=== PATIENT | female | born 1975 | race Caucasian/White ===

== ENCOUNTER → 2016-12-14 12:46 | Outpatient (CLI) | payer MEDICAID ==
[~2016-12-14 12:46] MED LIST: AMBIEN5 MG PO; HYDROCODONE-APA1 TAB PO; MULTIPLE VITAMI1 TA1 PO; NEURONTIN600 MG PO; SYNTHROID175 MCG PO
== END | disposition home or self-care (01) ==
LOC: D.MRI 12:46
DX: M25.562 Pain in left knee (principal)

== ENCOUNTER → 2017-03-20 13:31 | Outpatient (CLI) | payer MEDICAID | END | disposition home or self-care (01) | LOC: D.MRI 13:31 | DX: M25.562 Pain in left knee (principal) ==

== ENCOUNTER 2017-04-18 06:01 | Day surgery (SDC) | payer MEDICAID ==
[2017-04-17 10:04] LABS: HEMATOCRIT 32.8 % (36.0-48.0); HEMOGLOBIN 10.3 g/dL (12-16); MCH 27.7 pg (26.0-34.0); MCHC 31.4 g/dL (31.0-37.0); MCV 88.2 fL (80.0-100.0); MEAN PLATELET VOLUME 9.5 fL (7.4-10.4); RBC 3.72 10x6/uL (4.00-5.40); RDW 13.4 % (11.5-14.5); WBC 5.1 10x3/uL (4.8-10.8)
[~2017-04-18] VITALS: Ht 167.6 cm; Wt 79.4 kg
[~2017-04-18 06:01] MED LIST changes: +ESTRACE 0.5 MG0.5 MG PO; +LEVOTHYROXINE200 MCG PO; +VOLTAREN100 MG PO; +XANAX1 MG PO; +ZOLOFT50 MG PO
[2017-04-18 06:23] VITALS: BP 113/73; Ht 167.6 cm; Wt 79.4 kg
[2017-04-18] MEDS ORDERED: PERCOCET 7.5/321 TAB PO (08:10)
--- NOTE | 2017-04-19 16:14 | OP ---
PATIENT NAME: SALVADOR SIN MEDICAL RECORD: [id number] :71 LOCATION:D.OPS ADMISSION DATE: SURGEON: MERYL PEREZ DO DATE OF OPERATION: 04/18/2017 PROCEDURE PERFORMED: Left knee arthroscopy, partial medial and partial lateral meniscectomies as well as medial femoral condyle chondroplasty. PREOPERATIVE DIAGNOSIS: Left knee medial meniscal tear. POSTOPERATIVE DIAGNOSES: Left knee medial meniscal tear, lateral meniscal tear, and grade III chondromalacia of the medial femoral condyle. SURGEON: Meryl Perez DO INDICATIONS: Ms. Sin is a 42-year-old female who has had left knee pain for some time. She had an MRI, which showed meniscal tear and she decided to have it fixed. She was consented in the office for the procedure. DESCRIPTION OF PROCEDURE: The patient was taken to the operative suite, given a gram of Ancef preoperatively and had no reaction. She has a PENICILLIN ALLERGY. A timeout was performed and all parties were in agreement. The left knee was identified as the correct knee and correct patient. The patient was placed in supine position. The left leg was prepped and draped and after the patient was given general anesthetic, the knee was then flexed and the portal sites were injected with 3.5mL of 0.5% Marcaine with epinephrine on both the medial and lateral portal sites on the anterior knee. The lateral portal was then established, it was a horizontal portal and then previously that was used. An incision was then made and the trocar was inserted into the knee up in the suprapatellar pouch. Camera was then inserted. The diagnostic arthroscopy then began. First the suprapatellar pouch noting no loose bodies, then the lateral gutter and no loose bodies. Medial gutter, no loose bodies. Knee was then flexed and the medial compartment was then entered. Medial meniscal tear was noted and probed. Once the medial portal was established, an up-biter was then used to trim out the tear back to a stable spot. The shaver was then used to clean it up and the medial femoral condyle chondroplasty was performed at that time, noticed grade III changes in the cartilage of the medial femoral condyle. Once this abrasion chondroplasty was done, a probe was entered in the knee. The ACL was probed and seen to be in good position and taut. We then placed in the lateral compartment of the knee and the knee was figured-four. Lateral compartment was then entered and lateral meniscal tear was noted and a straight biter was used to trim that out. Then the lateral meniscus probed as well. The shaver was used to clean out any loose bodies in the remainder of the joint on the lateral joint. The patellofemoral joint was then viewed again and the knee was flexed to approximately 70 degrees and the patella seemed to be engaged well in the trochlea. Once this was done, the camera was removed and excess fluid was suctioned out of the knee and the portal sites were closed with a single stitch of 3-0 Monocryl in an inverted interrupted fashion. Steri-Strips, 4 x 4s, ABDs, Webril, and Trino wrap was placed over the knee. The patient was awakened and taken to recovery in stable condition. Blood loss was minimal. TRANSINT:[id number] Voice Confirmation ID: [id number] DOCUMENT ID: [id number] OPERATIVE REPORT [id number] SALVADOR SIN MICHAEL D, DO at 1614 CC: [id number] DICTATION DATE: 04/18/17 0856 BENCH WORKER HOLLOW HANDLE: 04/18/17 0925 [facility] 04/18/17 [address] [id number] [place] [address]
== END 2017-04-18 10:35 | disposition home or self-care (01) ==
LOC: D.OPS 06:01 → D.PAN 12:30
PROVIDERS: Anesthesiology
DX: S83.242A Other tear of medial meniscus, current injury, left knee, initial encounter (principal); S83.282A Other tear of lateral meniscus, current injury, left knee, initial encounter; M25.562 Pain in left knee; E03.9 Hypothyroidism, unspecified; X58.XXXA Exposure to other specified factors, initial encounter; M22.42 Chondromalacia patellae, left knee

== ENCOUNTER 2017-05-15 10:54 | Emergency (ER) | payer MEDICAID ==
[2017-04-18 06:23] VITALS: BMI 28.3
[~2017-05-15 10:54] MED LIST changes: +PERCOCET 7.5/321 TAB PO
[2017-05-15 12:22] LABS: BASOPHILS 0 % (0-2); EOSINOPHILS 0 % (0-7); HEMATOCRIT 36.7 % (36.0-48.0); HEMOGLOBIN 11.9 g/dL (12-16); IMMATURE GRANULOCYTES 0.1 % (0-5); LYMPHOCYTES 38.1 % (15-50); MCH 27.7 pg (26.0-34.0); MCHC 32.4 g/dL (31.0-37.0); MCV 85.3 fL (80.0-100.0); MEAN PLATELET VOLUME 9.9 fL (7.4-10.4); MONOCYTES 7.1 % (2-11); NEUTROPHILS 54.7 % (40-80); RDW 13.7 % (11.5-14.5); WBC 7.4 10x3/uL (4.8-10.8)
[2017-05-15 12:28] LABS: PLATELET COUNT 235 10x3/uL (130-400)
[2017-05-15 12:41] LABS: ALBUMIN 4.5 g/dL (3.4-5.0); ALKALINE PHOSPHATASE 116 U/L (46-116); ALT (SGPT) 23 U/L (10-68); CALC OSMOLALITY 283 mosm/kg (275-300); CALCIUM 8.7 mg/dL (8.5-10.1); CARBON DIOXIDE 26.8 mmol/L (21.0-32.0); CHLORIDE - SERUM 107 mmol/L (98-107); CREATININE - SERUM 1.1 mg/dL (0.6-1.3); GLUCOSE 89 mg/dL (74-106); POTASSIUM - SERUM 3.9 mmol/L (3.5-5.1); PROTEIN - SERUM 7.5 g/dL (6.4-8.2); SODIUM 142 mmol/L (136-145); UREA NITROGEN 17 mg/dL (7-18); eGFR NON AFRICAN AMERICAN 57 mL/min (90-120)
[2017-05-15 12:54] LABS: CKMB 1.6 U/L (0.0-3.6); CREATINE KINASE 80 UL (21-215); TROPONIN-I < 0.017 ng/mL (0.000-0.060)
== END 2017-05-15 14:12 | disposition home or self-care (01) ==
LOC: D.ER 10:54
PROVIDERS: Emergency Medicine
DX: I20.8 Other forms of angina pectoris (principal); R00.2 Palpitations; R06.02 Shortness of breath

== ENCOUNTER 2017-05-16 16:06 | Emergency (ER) | payer MEDICAID ==
[2017-04-18 06:23] VITALS: BMI 28.3
[2017-05-16 16:44] LABS: BASOPHILS 0 % (0-2); EOSINOPHILS 0 % (0-7); HEMATOCRIT 36.4 % (36.0-48.0); IMMATURE GRANULOCYTES 0.2 % (0-5); LYMPHOCYTES 42.5 % (15-50); NEUTROPHILS 50.3 % (40-80); PLATELET COUNT 209 10x3/uL (130-400); RBC 4.28 10x6/uL (4.00-5.40); RDW 13.7 % (11.5-14.5); WBC 6.3 10x3/uL (4.8-10.8)
[2017-05-16 17:04] LABS: ALBUMIN 4.3 g/dL (3.4-5.0); ALKALINE PHOSPHATASE 114 U/L (46-116); ALT (SGPT) 24 U/L (10-68); CALC OSMOLALITY 278 mosm/kg (275-300); CALCIUM 8.4 mg/dL (8.5-10.1); CHLORIDE - SERUM 106 mmol/L (98-107); CREATININE - SERUM 0.9 mg/dL (0.6-1.3); GLUCOSE 85 mg/dL (74-106); POTASSIUM - SERUM 4.1 mmol/L (3.5-5.1); PROTEIN - SERUM 7.2 g/dL (6.4-8.2); SODIUM 140 mmol/L (136-145); UREA NITROGEN 15 mg/dL (7-18); eGFR NON AFRICAN AMERICAN 72 mL/min (90-120)
[2017-05-16 17:15] LABS: CREATINE KINASE 68 UL (21-215); TROPONIN-I < 0.017 ng/mL (0.000-0.060)
== END 2017-05-16 18:30 | disposition home or self-care (01) ==
LOC: D.ER 16:06
PROVIDERS: Emergency Medicine
DX: R07.9 Chest pain, unspecified (principal)

== ENCOUNTER → 2017-05-24 09:39 | Outpatient (CLI) | payer MEDICAID ==
[2017-04-18 06:23] VITALS: BMI 28.3
[~2017-05-24 09:39] MED LIST changes: +ATARAX 25 MG TA25 MG PO; +CIPRO500 MG PO; +ELIQUIS2.5 MG PO; +OXYCODONE HCL5 MG PO; +SEROQUEL100 MG PO; +ZANAFLEX4 MG PO; +ZOLOFT100 MG PO
--- NOTE | 2017-06-12 09:15 | EC ---
PATIENT:SALVADOR EVANS DATE OF SERVICE: 05/24/17 SEX: F MEDICAL RECORD: [id number] DATE OF : 71 LOCATION:[facility] AGE OF PATIENT: 42 ADMISSION DATE: 05/24/17 REFERRING PHYSICIAN: INTERPRETING PHYSICIAN: SONJA IBRAHIM MD ECHOCARDIOGRAM REPORT ECHO CHARGES 4 ECHO COMPLETE CLINICAL DIAGNOSIS: DYSPNEA/CP/PALPITATIONS ECHOCARDIOGRAPHIC MEASUREMENTS (adult normal given) AC root (d.<3.7cm) 3.4 cm LV Septum d (<1.2 cm> 1.4 cm Valve Excursion 2.2 cm LV Septum (systole) 2.0 cm Left Atria (s.<4.0cm> 3.1 cm LVPW d(<1.2cm) 1.4 cm RV (d.<2.3cm) 2.8 cm LVPW (sytole) 2.0 cm LV diastole(<5.6CM) 4.5 cm MV E-F(>70mm/sec) cm LV systole 2.1 cm LVOT Diameter 2.0 cm MV exc.(>10mm) cm Est.ejection fraction (50-75%) % Pericardial Effusion N DOPPLER: LVIT cm/sec A 53.0 cm/sec E 69.0 cm/sec LA cm/sec RVSP 30.1 mmHg LVOT 95.0 cm/sec AOP1/2T m/s Asc. Ao 153 cm/sec RVOT 74.0 cm/sec RA cm/sec PA 89.0 cm/sec AV Gradient Peak 9.3 mmHg AV Mean 5.0 mmHg AV Area 1.8 cm MV Gradient Peak 2.6 mmHg MV Mean 1.1 mmHg MV Area cm COMMENTS: Community Health Worker: Bryna REYNAOE Medical Accounting Clerk: Rony Ibrahim TAPE# PACS DATE OF SERVICE: 05/24/2017 PROCEDURE: Transthoracic echocardiogram. FINDINGS: 1. The left ventricle has mild concentric left ventricular hypertrophy. Ejection fraction is 65%. Inflow characteristics are normal. No regional wall motion abnormalities. 2. The left atrium is normal size, normal function. 3. The mitral valve has trace mitral regurgitation with normal left atrial ECHOCARDIOGRAM REPORT [id number] SALVADOR EVANS dimensions. 4. The right ventricle is normal size, normal function. 5. The right atrium is normal size, normal function. 6. There is trace tricuspid regurgitation, normal right ventricular systolic pressures. 7. There is mild pulmonic insufficiency. CONCLUSIONS: The patient has evidence of mild hypertensive heart disease with normal LV systolic function. TRANSINT:[id number] Voice Confirmation ID: [id number] DOCUMENT ID: [id number] SONJA IBRAHIM MD at 0915 CC: [id number] DICTATION DATE: 05/30/17 1137 ASSEMBLER FLEXIBLE LEADS: 05/30/17 1232 DEP CLI 05/24/[address] [address]
== END | disposition home or self-care (01) ==
LOC: D.ECHO 09:39
DX: R06.00 Dyspnea, unspecified (principal); R07.9 Chest pain, unspecified; R00.2 Palpitations

== ENCOUNTER → 2017-06-13 06:53 | Outpatient (CLI) | payer MEDICAID ==
[2017-04-18 06:23] VITALS: BMI 28.3
--- NOTE | 2017-07-04 08:55 | ST ---
PATIENT:SALVADOR EVANS MEDICAL RECORD: [id number] SEX: F LOCATION:[facility] ORDER #: ADMISSION DATE: 06/13/17 AGE OF PATIENT: 42 REFERRING PHYSICIAN: INTERPRETING PHYSICIAN: SONJA IBRAHIM MD DATE OF SERVICE: 06/13/2017 PROCEDURE: Lexiscan directed stress test. DESCRIPTION OF PROCEDURE: The patient underwent a standard protocol. There was 12.5 mCi injected at rest and 31.7 mCi injected at stress. The patient tolerated the procedure without complication. RESULTS: The patient's SPECT exam showed no evidence of ischemia. The patient's gated perfusion showed an ejection fraction of 64%. CONCLUSIONS: The patient has no evidence of ischemia. LV dysfunction, ejection fraction 64%. TRANSINT:[id number] Voice Confirmation ID: [id number] DOCUMENT ID: [id number] SONJA IBRAHIM MD at 0855 CC: [id number] DICTATION DATE: 06/13/171999 RUBBER TILE FLOOR LAYER: 06/14/17 0843 DEP CLI 06/13/[address] [address]
== END | disposition home or self-care (01) ==
LOC: D.NM 06-01 13:00
DX: R06.00 Dyspnea, unspecified (principal); R07.9 Chest pain, unspecified; R00.2 Palpitations

== ENCOUNTER → 2017-07-27 14:45 | Outpatient (CLI) | payer MEDICAID ==
[2017-04-18 06:23] VITALS: BMI 28.3
== END | disposition home or self-care (01) ==
LOC: D.LABREF 14:45
DX: M17.12 Unilateral primary osteoarthritis, left knee (principal); Z11.8 Encounter for screening for other infectious and parasitic diseases

== ENCOUNTER 2017-08-02 10:00 | Inpatient (IN) | payer MEDICAID ==
[~2017-08-02] VITALS: Ht 167.6 cm; Wt 77.3 kg
--- NOTE | ~2017-08-02 | OP ---
PATIENT NAME: SALVADOR SIN MEDICAL RECORD: [id number] :71 LOCATION:D.MS Christy2210 ADMISSION DATE:08/15/17 SURGEON: MERYL PEREZ DO DATE OF OPERATION: 08/15/2017 PROCEDURE PERFORMED: Left total knee arthroplasty. PREOPERATIVE DIAGNOSIS: Left knee osteoarthritis. POSTOPERATIVE DIAGNOSIS: Left knee osteoarthritis. INDICATIONS: Ms. Sin is a 42-year-old female who has had left knee pain for quite some time. She had a knee scope within the past 6 months that showed a grade IV chondromalacia on the medial femoral condyle as well as on the lateral tibia and meniscal tear. She really did not get better after the knee scope. After the meniscal tear was trimmed out, she actually got worse, complaining of more and more pain. She could hardly walk and started to affect her life. She did not want to leave the house, could hardly do any work. After talking with her and having a long discussion about her age as she is really young to get total knee. We got another MRI of her knee, which showed advancing chondromalacia of the medial femoral condyle as well as the lateral tibial plateau. Once noting this and having that discussion with her that this probably would be the best option, she decided to go ahead with the procedure as it was affecting her life and she wanted to get back to living her life like she did before. We did not come about this decision easily; however, it was her choice and she is the one that desired to have this done and wanting to help her out and I told her I would do it. TOURNIQUET TIME: 51 minutes. COMPLICATIONS: None. BLOOD LOSS: Approximately 100 mL. DESCRIPTION OF PROCEDURE: The patient was given a block in the preoperative area by anesthesia and taken to the operative suite and laid in supine position and given vancomycin due to her penicillin allergy. The left lower extremity was prepped and draped in sterile fashion. Timeout was performed, everyone was in agreement to correct side, site, and patient. After this was done, an incision was marked out in the midline of the knee. Then, Ioban was placed over the knee. Incision was then made down to the capsule. Capsule was cleared off medially and then a new knife was used to do the capsulotomy via medial parapatellar approach. Once the knee joint was entered, there was a yellow looking synovium that was encountered. We did a biopsy of this and cultures as well as stat Gram stain. We let the tourniquet down at that time knowing it had been up for a few minutes and then waited for the results. Gram stain came back with no organisms and the neutrophils per high power field were very few, less than 5, so it was decided to proceed forward just ensuring there was no infection. The medial femoral condyle again was encountered. There was grade IV chondromalacia over a large area as well as she had a new spot on the lateral femoral condyle as well as the lateral tibial plateau. The ACL was taken down at that time and patella was everted. The fat pad was taken off partially and the patella was milled down to put a thin patella back on, size 31. The knee was then flexed up and the intramedullary guide was put into place after the drill had been put intramedullary. Asepto was used to irrigate it and suction OPERATIVE REPORT [id number] SALVADOR SIN out anything in the medullary canal. Then, the distal femur cutting block was put on and 11 mm was resected from the distal femur. Once this was done, attention was drawn to the tibia. We resected some tibia and brought the knee into extension. Lamina asp developer was used and [place] to clear off the medial and lateral meniscus and any debris that had been there. We then tried the extension block and it quite fit, so we cut 2 more mm off of the tibia and the extension block fit well. Once the tibia had been exposed, PCL was noted to be very lax and I decided to do a posterior stabilized knee. Due to this fact, the PCL was taken out and just made me think she may have rheumatoid arthritis, we will work her up for it later. After this was done, the tibia was exposed. We measured the femur to be 57.5. This is cut. The 4-in-1 cutting block was done and then the center part was cut out for the posterior stabilized post. We then put the trial on and floated the tibial tray in, marked rotation. We took the trial off of the femur and drilled for the patella and then flexed the knee up and exposed the tibia, sized it to be a 71. It seemed to be a very good fit and then punched the tibia. The cement was then mixed. The tibial tray was put into place, cement first in the tibia and then on the implant and all the excess cement was removed. Once this was done, the femur was put into place and pressed the femur and then the poly was put in between. Knee was brought into extension and the patella was put in, cemented and the screws were put on now. While the cement dried, the tourniquet was let down at 51 minutes and all the bleeders were coagulated at that time. We irrigated the knee, very thoroughly, trialed the 10, seemed to fit very well and the 10 poly was put into place and ranged it and the locking mechanism put into place. She had good stability medial laterally and anterior posteriorly. After this was done, the knee was irrigated thoroughly and Alexa was put in the knee and the capsule was closed with #1 Vicryl pop offs in a [id number]-wp-ehvcl fashion. The capsule was then irrigated and more Alexa was put in and the skin was closed with 2-0 Vicryl in inverted interrupted fashion and ZipLine was placed on the knee. Adaptic, 4 x 4's, ABD, Webril, and Trino wrap were then placed on the knee and stocking was placed up to the knee. The patient was awakened and taken to recovery in stable condition. TRANSINT:[id number] Voice Confirmation ID: [id number] DOCUMENT ID: [id number] MERYL PEREZ DO at 1404 CC: [id number] DICTATION DATE: 08/15/17 1010 POLY PACKER AND HEAT SEALER: 08/15/17 1323 [facility] [place] [address] [place] [id number]
[~2017-08-02 10:00] MED LIST changes: -ATARAX 25 MG TA25 MG PO; -CIPRO500 MG PO; -ELIQUIS2.5 MG PO; -OXYCODONE HCL5 MG PO; -SEROQUEL100 MG PO; -ZANAFLEX4 MG PO; -ZOLOFT100 MG PO
[2017-08-08] MEDS ORDERED: ZOLOFT100 MG PO (14:16)
[2017-08-08] MEDS ORDERED: ZANAFLEX4 MG PO (14:17)
[2017-08-09] MEDS ORDERED: SEROQUEL100 MG PO (11:43)
[2017-08-09 12:51] LABS: BASOPHILS 0 % (0-2); EOSINOPHILS 0 % (0-7); HEMATOCRIT 39.8 % (36.0-48.0); HEMOGLOBIN 13.4 g/dL (12-16); IMMATURE GRANULOCYTES 0.1 % (0-5); MCH 30.8 pg (26.0-34.0); MCHC 33.7 g/dL (31.0-37.0); MCV 91.5 fL (80.0-100.0); MEAN PLATELET VOLUME 10.3 fL (7.4-10.4); MONOCYTES 5.3 % (2-11); NEUTROPHILS 65.6 % (40-80); PLATELET COUNT 185 10x3/uL (130-400); RBC 4.35 10x6/uL (4.00-5.40); RDW 14.6 % (11.5-14.5)
[2017-08-09 13:02] LABS: APTT 31.7 SECONDS (22.8-39.4); INR 0.93 (0.85-1.17); PROTIME 12.1 SECONDS (11.6-15.0)
[2017-08-09 13:22] LABS: APPEARANCE CLEAR (CLEAR); BILIRUBIN NEGATIVE (NEGATIVE); COLOR YELLOW (YELLOW); GLUCOSE NEGATIVE (NEGATIVE); KETONE NEGATIVE (NEGATIVE); NITRITE NEGATIVE (NEGATIVE); PROTEIN NEGATIVE (NEGATIVE); SPECIFIC GRAVITY 1.015 (1.005-1.020); UROBILINOGEN NORMAL (NORMAL)
[2017-08-09 13:24] LABS: ANION GAP 12.1 mmol/L (8-16); CALCIUM 8.9 mg/dL (8.5-10.1); CARBON DIOXIDE 28.1 mmol/L (21.0-32.0); CREATININE - SERUM 0.9 mg/dL (0.6-1.3); POTASSIUM - SERUM 4.2 mmol/L (3.5-5.1)
[2017-08-15] VITALS (11 sets, daily range): BP systolic 101–129; BP diastolic 66–89; Ht 167.6 cm; Wt 77.3 kg
[2017-08-16 01:13] VITALS: BP 102/58
[2017-08-16 05:25] VITALS: BP 103/61
[2017-08-16 05:27] LABS: HEMATOCRIT 34.3 % (36.0-48.0); HEMOGLOBIN 11.4 g/dL (12-16); MCH 30.5 pg (26.0-34.0); MCHC 33.2 g/dL (31.0-37.0); MCV 91.7 fL (80.0-100.0); MEAN PLATELET VOLUME 10.3 fL (7.4-10.4); RBC 3.74 10x6/uL (4.00-5.40); RDW 14.7 % (11.5-14.5); WBC 7.1 10x3/uL (4.8-10.8)
[2017-08-16 07:58] VITALS: BP 99/67
[2017-08-16 12:26] VITALS: BP 114/71
[2017-08-16 15:56] VITALS: BP 116/78
[2017-08-17 04:39] VITALS: BP 135/100
[2017-08-17 04:47] LABS: HEMATOCRIT 33.8 % (36.0-48.0); HEMOGLOBIN 11.2 g/dL (12-16); MCH 30.2 pg (26.0-34.0); MCHC 33.1 g/dL (31.0-37.0); MCV 91.1 fL (80.0-100.0); MEAN PLATELET VOLUME 9.8 fL (7.4-10.4); RBC 3.71 10x6/uL (4.00-5.40); RDW 14.5 % (11.5-14.5); WBC 5.9 10x3/uL (4.8-10.8)
[2017-08-17 04:51] VITALS: BP 16/69
[2017-08-17 06:31] VITALS: BP 120/72
[2017-08-17 08:35] VITALS: BP 136/83
[2017-08-17 12:46] VITALS: BP 132/84
[2017-08-17 16:06] VITALS: BP 135/84
[2017-08-17] MEDS ORDERED: ELIQUIS2.5 MG PO (16:15)
[2017-08-17] MEDS ORDERED: ATARAX 25 MG TA25 MG PO (16:15)
[2017-08-17] MEDS ORDERED: OXYCODONE HCL5 MG PO (16:16)
[2017-08-17] MEDS ORDERED: CIPRO500 MG PO (16:18)
== END 2017-08-17 17:50 | disposition home or self-care (01) | DRG 470 ==
LOC: D.SDCHOLD 08-08 10:00 → D.MS 08-15 05:27 → D.SDCHOLD 08-15 05:27 → D.MS 08-15 10:30
PROVIDERS: Orthopaedic Surgery
PROC: 0SRD0J9 Replacement of Left Knee Joint with Synthetic Substitute, Cemented, Open Approach (ICD-10-PCS; principal; 2017-08-15 07:30)
DX: M17.12 Unilateral primary osteoarthritis, left knee (principal); M22.42 Chondromalacia patellae, left knee

== ENCOUNTER → 2017-08-08 09:01 | Outpatient (CLI) | payer MEDICAID ==
[2017-04-18 06:23] VITALS: BMI 28.3
[~2017-08-08 09:01] MED LIST changes: +ATARAX 25 MG TA25 MG PO; +CIPRO500 MG PO; +ELIQUIS2.5 MG PO; +OXYCODONE HCL5 MG PO; +SEROQUEL100 MG PO; +ZANAFLEX4 MG PO; +ZOLOFT100 MG PO
== END | disposition home or self-care (01) ==
LOC: D.MRI 08-07 16:30
DX: M25.562 Pain in left knee (principal)

== ENCOUNTER → 2017-09-11 11:07 | Outpatient (CLI) | payer MEDICAID ==
[2017-08-15 11:12] VITALS: BMI 27.5
== END | disposition home or self-care (01) ==
LOC: D.US 11:00
DX: M25.862 Other specified joint disorders, left knee (principal)

== ENCOUNTER → 2017-09-29 15:22 | Outpatient (CLI) | payer MEDICAID ==
[2017-08-15 11:12] VITALS: BMI 27.5
[2017-09-29 16:51] LABS: BASOPHILS 0 % (0-2); EOSINOPHILS 0.1 % (0-7); HEMATOCRIT 39.1 % (36.0-48.0); HEMOGLOBIN 13.5 g/dL (12-16); IMMATURE GRANULOCYTES 0.1 % (0-5); LYMPHOCYTES 36.9 % (15-50); MCH 30.5 pg (26.0-34.0); MCHC 34.5 g/dL (31.0-37.0); MCV 88.3 fL (80.0-100.0); MEAN PLATELET VOLUME 10.2 fL (7.4-10.4); MONOCYTES 6.2 % (2-11); NEUTROPHILS 56.7 % (40-80); RBC 4.43 10x6/uL (4.00-5.40); RDW 12.6 % (11.5-14.5)
[2017-09-29 16:58] LABS: PLATELET COUNT 218 10x3/uL (130-400)
[2017-09-29 18:04] LABS: ERYTHROCYTE SEDIMENTATION RATE 20 mm/hr (0-20)
== END | disposition home or self-care (01) ==
LOC: D.LABREF 15:22
PROVIDERS: Nurse Practitioner Family
DX: M25.562 Pain in left knee (principal)

== ENCOUNTER 2017-10-10 12:34 | Emergency (ER) | payer MEDICAID ==
[2017-08-15 11:12] VITALS: BMI 27.5
== END 2017-10-10 17:29 | disposition left against medical advice (07) ==
LOC: D.ER 12:34
DX: M25.562 Pain in left knee (principal)

== ENCOUNTER → 2018-06-26 16:56 | Outpatient (CLI) | payer MEDICAID ==
[2017-08-15 11:12] VITALS: BMI 27.5
== END | disposition home or self-care (01) ==
LOC: D.MAMMO 08:45
DX: Z12.31 Encounter for screening mammogram for malignant neoplasm of breast (principal)

== ENCOUNTER 2018-07-03 03:26 | Emergency (ER) | payer MEDICAID ==
[~2018-07-03] VITALS: Ht 167.6 cm; Wt 70.0 kg
[2018-07-03 03:29] VITALS: Ht 167.6 cm; Wt 70.0 kg
[2018-07-03] MEDS ORDERED: CYCLOBENZAPRINE10 MG PO (03:31)
[2018-07-03 04:03] LABS: APPEARANCE CLEAR (CLEAR); BILIRUBIN NEGATIVE (NEGATIVE); COLOR YELLOW (YELLOW); GLUCOSE NEGATIVE (NEGATIVE); KETONE NEGATIVE (NEGATIVE); NITRITE NEGATIVE (NEGATIVE); PROTEIN NEGATIVE (NEGATIVE); SPECIFIC GRAVITY 1.015 (1.005-1.020); UROBILINOGEN NORMAL (NORMAL)
[2018-07-03 04:06] LABS: BACTERIA FEW /hpf (NONE SEEN); EPITHELIAL CELLS 0-5 /hpf (0-5); RED CELLS - URINE 0-5 /hpf (0-5); WHITE CELLS - URINE 0-5 /hpf (0-5)
[2018-07-03 04:42] LABS: BASOPHILS 0 % (0-2); EOSINOPHILS 0 % (0-7); HEMATOCRIT 33.8 % (36.0-48.0); HEMOGLOBIN 11.9 g/dL (12-16); LYMPHOCYTES 31.9 % (15-50); MCH 32.7 pg (26.0-34.0); MCHC 35.2 g/dL (31.0-37.0); MCV 92.9 fL (80.0-100.0); MEAN PLATELET VOLUME 10.1 fL (7.4-10.4); MONOCYTES 4.1 % (2-11); PLATELET COUNT 142 10x3/uL (130-400); RBC 3.64 10x6/uL (4.00-5.40); RDW 13.3 % (11.5-14.5); WBC 5.1 10x3/uL (4.8-10.8)
[2018-07-03 04:48] LABS: HCG SERUM NEGATIVE (NEGATIVE)
[2018-07-03 05:05] LABS: ALBUMIN 3.4 g/dL (3.4-5.0); ALKALINE PHOSPHATASE 82 U/L (46-116); ALT (SGPT) 19 U/L (10-68); CALC OSMOLALITY 278 mosm/kg (275-300); CALCIUM 7.7 mg/dL (8.5-10.1); CARBON DIOXIDE 29.5 mmol/L (21.0-32.0); CHLORIDE - SERUM 106 mmol/L (98-107); CREATININE - SERUM 0.6 mg/dL (0.6-1.3); GLUCOSE 87 mg/dL (74-106); LIPASE 77 U/L (73-393); POTASSIUM - SERUM 3.8 mmol/L (3.5-5.1); SODIUM 141 mmol/L (136-145); UREA NITROGEN 9 mg/dL (7-18); eGFR NON AFRICAN AMERICAN > 90 mL/min (90-120)
[2018-07-03 05:30] LABS: UDS - AMPHET NEGATIVE QUAL (NEGATIVE); UDS - BARB NEGATIVE QUAL (NEGATIVE); UDS - BENZO POSITIVE QUAL (NEGATIVE); UDS - COCAINE NEGATIVE QUAL (NEGATIVE); UDS - OPIATE NEGATIVE QUAL (NEGATIVE); UDS - PCP NEGATIVE QUAL (NEGATIVE); UDS - THC POSITIVE QUAL (NEGATIVE)
[2018-07-03 05:57] VITALS: BP 120/89
== END 2018-07-03 06:47 | disposition home or self-care (01) ==
LOC: D.ER 03:26
PROVIDERS: Family Medicine
DX: R10.32 Left lower quadrant pain (principal); M54.5 Low back pain

== ENCOUNTER 2018-07-13 08:00 | Outpatient (CLI) | payer MEDICAID ==
[2018-07-03 03:29] VITALS: BMI 24.9
[~2018-07-13 08:00] MED LIST changes: +CYCLOBENZAPRINE10 MG PO
== END 2018-07-13 09:00 | disposition home or self-care (01) ==
LOC: D.MAMMO 08:00
DX: R92.8 Other abnormal and inconclusive findings on diagnostic imaging of breast (principal)

== ENCOUNTER 2018-10-03 10:09 | Emergency (ER) | payer MEDICAID ==
[~2018-10-03] VITALS: Ht 167.6 cm; Wt 70.0 kg
[2018-10-03 10:13] VITALS: Ht 167.6 cm; Wt 70.0 kg
[2018-10-03] MEDS ORDERED: SEROQUEL XR300 MG PO (10:20)
[2018-10-03 13:00] LABS: BASOPHILS 0 % (0-2); EOSINOPHILS 0 % (0-7); HEMATOCRIT 35.4 % (36.0-48.0); HEMOGLOBIN 12.3 g/dL (12-16); IMMATURE GRANULOCYTES 0.2 % (0-5); LYMPHOCYTES 39.8 % (15-50); MCH 32.1 pg (26.0-34.0); MCHC 34.7 g/dL (31.0-37.0); MCV 92.4 fL (80.0-100.0); MEAN PLATELET VOLUME 10.2 fL (7.4-10.4); MONOCYTES 5.3 % (2-11); NEUTROPHILS 54.7 % (40-80); RBC 3.83 10x6/uL (4.00-5.40); RDW 13.6 % (11.5-14.5); WBC 5.7 10x3/uL (4.8-10.8)
[2018-10-03] MEDS ORDERED: IBUPROFEN800 MG PO (13:00)
[2018-10-03] MEDS ORDERED: CYCLOBENZAPRINE10 MG PO (13:00)
[2018-10-03] MEDS ORDERED: ACETAMINOPHEN500 M1 PO (13:00)
[2018-10-03 13:06] LABS: PLATELET COUNT 186 10x3/uL (130-400)
[2018-10-03 13:09] LABS: ALBUMIN 4.2 g/dL (3.4-5.0); ALKALINE PHOSPHATASE 111 U/L (46-116); ALT (SGPT) 22 U/L (10-68); BILIRUBIN - TOTAL 0.51 mg/dL (0.2-1.3); CALC OSMOLALITY 279 mosm/kg (275-300); CALCIUM 8.6 mg/dL (8.5-10.1); CHLORIDE - SERUM 102 mmol/L (98-107); CREATININE - SERUM 0.8 mg/dL (0.6-1.3); GLUCOSE 100 mg/dL (74-106); POTASSIUM - SERUM 3.8 mmol/L (3.5-5.1); PROTEIN - SERUM 7.3 g/dL (6.4-8.2); SODIUM 141 mmol/L (136-145); UREA NITROGEN 9 mg/dL (7-18); eGFR NON AFRICAN AMERICAN 82 mL/min (90-120)
[2018-10-03 13:21] VITALS: BP 111/74
== END 2018-10-03 13:21 | disposition home or self-care (01) ==
LOC: D.ER 10:09
PROVIDERS: Family Medicine
DX: M71.22 Synovial cyst of popliteal space [Baker], left knee (principal); R60.0 Localized edema; M79.605 Pain in left leg

== ENCOUNTER 2018-10-16 12:43 | Inpatient (IN) | payer MEDICAID ==
[~2018-10-16] VITALS: Ht 167.6 cm; Wt 70.9 kg
[~2018-10-16 12:43] MED LIST changes: +ACETAMINOPHEN500 M1 PO; +IBUPROFEN800 MG PO; +SEROQUEL XR300 MG PO
[2018-10-18] MEDS ORDERED: LYRICA75 MG PO (11:06)
[2018-10-18] MEDS ORDERED: LAMICTAL100 MG PO (11:07)
[2018-10-18] MEDS ORDERED: BUSPAR10 MG PO (11:07)
[2018-10-18] MEDS ORDERED: PRAVACHOL20 MG PO (11:07)
[2018-10-18] MEDS ORDERED: LISINOPRIL10 MG PO (11:08)
[2018-10-18 11:53] LABS: BASOPHILS 0 % (0-2); EOSINOPHILS 0 % (0-7); HEMATOCRIT 37.4 % (36.0-48.0); HEMOGLOBIN 12.8 g/dL (12-16); IMMATURE GRANULOCYTES 0.2 % (0-5); LYMPHOCYTES 32.6 % (15-50); MCH 31.5 pg (26.0-34.0); MCHC 34.2 g/dL (31.0-37.0); MCV 92.1 fL (80.0-100.0); MEAN PLATELET VOLUME 9.5 fL (7.4-10.4); MONOCYTES 4.8 % (2-11); NEUTROPHILS 62.4 % (40-80); PLATELET COUNT 192 10x3/uL (130-400); RBC 4.06 10x6/uL (4.00-5.40); WBC 6.6 10x3/uL (4.8-10.8)
[2018-10-18 11:55] LABS: APPEARANCE CLEAR (CLEAR); BILIRUBIN NEGATIVE (NEGATIVE); COLOR YELLOW (YELLOW); GLUCOSE NEGATIVE (NEGATIVE); KETONE NEGATIVE (NEGATIVE); NITRITE NEGATIVE (NEGATIVE); PROTEIN NEGATIVE (NEGATIVE); SPECIFIC GRAVITY 1.005 (1.005-1.020); UROBILINOGEN NORMAL (NORMAL)
[2018-10-18 12:09] LABS: APTT 28.8 SECONDS (22.8-39.4); INR 1.01 (0.85-1.17); PROTIME 12.8 SECONDS (11.6-15.0)
[2018-10-18 12:14] LABS: CALC OSMOLALITY 277 mosm/kg (275-300); CALCIUM 8.7 mg/dL (8.5-10.1); CARBON DIOXIDE 29.7 mmol/L (21.0-32.0); CHLORIDE - SERUM 102 mmol/L (98-107); CREATININE - SERUM 0.7 mg/dL (0.6-1.3); GLUCOSE 95 mg/dL (74-106); POTASSIUM - SERUM 3.7 mmol/L (3.5-5.1); SODIUM 140 mmol/L (136-145); UREA NITROGEN 10 mg/dL (7-18); eGFR NON AFRICAN AMERICAN > 90 mL/min (90-120)
[2018-10-23] VITALS (9 sets, daily range): BP systolic 105–116; BP diastolic 71–79; Ht 167.6 cm; Wt 70.9 kg
--- NOTE | 2018-10-23 12:17 | NUR ---
1140 PT HAS TYLENOL LISTED AN ALLERGY BUT STATES SHE TAKES TYLENOL "FROM TIME TO TIME" SHE HAS A HX OF OVERDOSING ON TYLENOL A FEW YEARS AGO AND WAS TOLD TO BE SPARINGLY IN TAKING TYLENOL. SHE DENIES LIVER DISEASE/DAMAGE DUE TO OD OF TYLENOL.
--- NOTE | 2018-10-23 16:17 | NUR ---
PLASMA BLADE SET 6/8 BOVIE PAD RIGHT THIGH [id number] EXP 03/29/2020
--- NOTE | 2018-10-23 17:48 | NUR ---
PATIENT ADMITTED TO ROOM 2211. ALERT AND ORIENTED X3. SPOUSE AT BEDSIDE. LUNGS CLEAR BILATERALLY IN ALL RHODES. HEART SOUNDS HEARD S1 AND S2 IN ALL RHODES. BOWEL SOUNDS ACTIVE X4. DENIES PROBLEMS WITH BOWEL MOVEMENTS. SKIN INTACT WITHOUT REDNESS. PEDAL PULSES PRESENT. IV TO LEFT HAND PATENT WITHOUT REDNESS. EDUCATION PROVIDED ON FALL PRECAUTIONS. FALL PRECAUTIONS IN PLACE. PERSONAL BELONGINGS AND CALL LIGHT IN REACH. BED LOW. WILL CONTINUE TO MONITOR.
--- NOTE | 2018-10-23 18:04 | NUR ---
PATIENT BEDDING CHANGED. FALL PRECAUTIONS IN PLACE. DENIES PAIN. DENIES FURTHER NEEDS.
--- NOTE | 2018-10-23 18:39 | NUR ---
PRN ZOFRAN GIVEN FOR NAUSEA. WILL CONTINUE TO MONITOR.
[2018-10-24 05:09] VITALS: BP 96/63
[2018-10-24 06:45] LABS: HEMATOCRIT 31.4 % (36.0-48.0); HEMOGLOBIN 10.5 g/dL (12-16); MCH 31.1 pg (26.0-34.0); MCHC 33.4 g/dL (31.0-37.0); MCV 92.9 fL (80.0-100.0); MEAN PLATELET VOLUME 10.3 fL (7.4-10.4); PLATELET COUNT 176 10x3/uL (130-400); RBC 3.38 10x6/uL (4.00-5.40); RDW 12.9 % (11.5-14.5); WBC 8.5 10x3/uL (4.8-10.8)
--- NOTE | 2018-10-24 08:45 | NUR ---
PATIENT IN BED WITH IV INTACT. NO COMPLAINTS OR SIGNS OF DISTRESS. STATED SHE HADNT HAD HER CPM ON. EXPLAINED TO PATIENT THAT IT SHOULD HAVE BEEN ON EARLY THIS AM AND THAT WE WILL PUT IT ON THIS EVENING. VERBALIZED UNDERSTANDING. WENT OVER PAIN MED SCHEDULE. EXPLAINED TO TRY TO STAY ON TOP OF PAIN MEDS SO SHE DOESNT HURT MUCH. VERBALIZED UNDERSTANDING. CALL LIGHT WITHIN REACH.
--- NOTE | 2018-10-24 09:09 | OP ---
PATIENT NAME: SALVADOR SIN MEDICAL RECORD: [id number] :71 LOCATION:D.MS Christy2211 ADMISSION DATE:10/23/18 SURGEON: JEREMIE PEREZ DO DATE OF OPERATION: 10/23/2018 PROCEDURE PERFORMED: Revision left total knee arthroplasty. 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 INDICATIONS: Ms. Sin is a 43-year-old female who underwent left total knee last year, over a year ago. She did well initially and then started having knee pain and knee was swelling from time to time. She had it aspirated several times and worked up for infection, which was negative. She was tired of dealing with the pain and ended up getting metal allergy testing and she was positive for allergy to cobalt and nickel, both of which were contained in the product that was in her left knee. It is a very rare occurrence. She was aware of that and then wanted revision done. I told her that there is a lot of risk with revision including infection, bleeding, need for further surgery, damage to nerves and vessels, instability, fracture, loss of motion of the knee. She is aware of that and willing to take the risk and signed the consent. SURGEON: Jeremie Perez DO WAFER MACHINE OPERATOR: I was assisted by Papa Rivera DESCRIPTION OF PROCEDURE: The patient received a block by anesthesia in the preoperative area, taken to the operative suite, and laid in supine position. Left lower extremity was prepped and draped in sterile fashion. The patient was given a gram of vancomycin, 80 mg of gentamicin preoperatively, and a gram of TXA. Once the left leg was prepped and draped in sterile fashion, time-out was performed and everyone was in agreement with correct side, site, patient, and procedure. The incision began over the old incision after the knee had been covered with Ioban and careful dissection was made down to the capsule. Medial parapatellar approach was made through the capsule. The old poly was removed. The femur was exposed and flexible osteotomes were used under the femur to loosen it. This was removed. The same maneuvers were used on the tibia. The tibia was removed. It was cemented and most of the cement was removed; however, it was very difficult to get the cement out of the canal of the tibia. The tibia was then freshened up, cut, and 2 mm was taken off of it as well as the femur went to a 55 and reamed to a 12 stem for the femur. I trialed the femur and a 67 tibia with an 18 poly. This fit pretty well, but she did have some hyperextension. I decided we do with 20 as the final implant. The rotation was then marked on the tibia and the femur was prepped after being cut with a distal guide in the canal and then a 4-in-1 cutting block for the same thing. Cuts were freshened up. The tibia was then prepared by marking the rotation and centering the 67 tray on the tibia. This was then drilled and then punched with a long stem due to the fact I did not put a revision stem in but a longer stem due to the fact that the revision stem does have cobalt in it, but the titanium is on this implant and not cobalt or nickel. The cement was then prepared. Cement was placed on the tibia, in the tibia, and around the tibial implant; and then tibia was impacted in place. Excess cement was removed. Same maneuver was used on the femur. The cement was placed on the femur and on the femoral OPERATIVE REPORT [id number] SALVADOR SIN M component. This was impacted in place as well. Excess cement was removed and then a poly was placed in between them and held out in extension. The tourniquet had been inflated prior to starting the procedure. The left lower extremity was Esmarch'ed and then the tourniquet was inflated to 350 mmHg, was up for 80 minutes. Once the cement had dried, the tourniquet was let down and the knee was thoroughly irrigated and then the 20 poly was trialed. This fit very well with good medial and lateral stability and flexion and extension. The 20 poly was posterior stabilized. Poly was actually put in and fit very well. The locking mechanism pin was then put in the tibia. The knee was then irrigated more and the gutters were put in with antibiotic powder of vancomycin and tobramycin and Surgicel powder. The capsule was then closed with #2 Ethibond in lcpzep-pz-lhbsp fashion and the capsule was irrigated more. Surgicel powder was placed on top of it and the skin was closed with 2-0 Vicryl in interrupted fashion and ZipLine was placed on the knee. Adaptic, 4 x 4, ABD, Webril, Trino wrap, and PERFECTO hose stocking were placed on the leg. The patient was awakened and taken to recovery in stable condition. Blood loss was approximately 200 mL. Complications were none. TRANSINT:[id number] Voice Confirmation ID: [id number] DOCUMENT ID: [id number] JEREMIE PEREZ DO at 0909 CC: [id number] DICTATION DATE: 10/23/18 165 ACADEMIC SUPPORT SPECIALIST: 10/23/18 1945 ADM IN [facility] [address] [id number]
[2018-10-24 09:35] VITALS: BP 135/70
[2018-10-24 11:20] LABS: BASOPHILS 0 % (0-2); EOSINOPHILS 0 % (0-7); IMMATURE GRANULOCYTES 0.2 % (0-5); LYMPHOCYTES 25.9 % (15-50); MONOCYTES 6.7 % (2-11); NEUTROPHILS 67.2 % (40-80)
[2018-10-24 11:21] LABS: ALBUMIN 3.2 g/dL (3.4-5.0); ALKALINE PHOSPHATASE 91 U/L (46-116); ALT (SGPT) 21 U/L (10-68); BILIRUBIN - TOTAL 0.53 mg/dL (0.2-1.3); CALC OSMOLALITY 281 mosm/kg (275-300); CALCIUM 8.1 mg/dL (8.5-10.1); CARBON DIOXIDE 29.9 mmol/L (21.0-32.0); CHLORIDE - SERUM 107 mmol/L (98-107); CREATININE - SERUM 0.8 mg/dL (0.6-1.3); GLUCOSE 98 mg/dL (74-106); PROTEIN - SERUM 5.5 g/dL (6.4-8.2); SODIUM 142 mmol/L (136-145); UREA NITROGEN 9 mg/dL (7-18); eGFR NON AFRICAN AMERICAN 82 mL/min (90-120)
[2018-10-24 13:58] VITALS: BP 119/73
--- NOTE | 2018-10-24 17:45 | NUR ---
PATIENT CPM PUT ON PATIENT. SCD ON RIGHT LEG AND LEFT FOOT PERFECTO AND PLEXI PULSE. PATIENT HAS NO COMPLAINTS AT THIS TIME. IV INTACT. CALL LIGHT WITHIN REACH.
[2018-10-24 18:01] VITALS: BP 106/73
[2018-10-24 21:11] VITALS: BP 148/73
[2018-10-25 01:32] VITALS: BP 138/74
[2018-10-25 05:18] VITALS: BP 154/80
[2018-10-25 07:08] LABS: BASOPHILS 0 % (0-2); EOSINOPHILS 0 % (0-7); HEMATOCRIT 31.2 % (36.0-48.0); HEMOGLOBIN 10.5 g/dL (12-16); IMMATURE GRANULOCYTES 0.2 % (0-5); LYMPHOCYTES 22.6 % (15-50); MCH 31.3 pg (26.0-34.0); MCHC 33.7 g/dL (31.0-37.0); MCV 93.1 fL (80.0-100.0); MEAN PLATELET VOLUME 10.2 fL (7.4-10.4); MONOCYTES 7.1 % (2-11); NEUTROPHILS 70.1 % (40-80); PLATELET COUNT 156 10x3/uL (130-400); RBC 3.35 10x6/uL (4.00-5.40); RDW 13.1 % (11.5-14.5)
[2018-10-25 07:21] LABS: WBC 6.3 10x3/uL (4.8-10.8)
[2018-10-25 07:35] LABS: ALBUMIN 3.1 g/dL (3.4-5.0); ANION GAP 10.7 mmol/L (8-16); BILIRUBIN - TOTAL 0.55 mg/dL (0.2-1.3); CALCIUM 7.9 mg/dL (8.5-10.1); CARBON DIOXIDE 29.1 mmol/L (21.0-32.0); POTASSIUM - SERUM 3.8 mmol/L (3.5-5.1); PROTEIN - SERUM 5.8 g/dL (6.4-8.2)
[2018-10-25 07:36] LABS: CREATININE - SERUM 1.2 mg/dL (0.6-1.3)
--- NOTE | 2018-10-25 08:29 | NUR ---
AWAKE AND AELRT. ORIENTED X3. NO C/O AT THIS TIME. CPM REMOVED PER STAFF. LUNGS ARE CLEAR BILATERALLY, NO COUGH NOTED. SKIN IS INTACT WITHOUT REDNESS EXCEPT INCISION TO LEFT KNEE WHICH HAS A DRY INTACT DRESSING IN PLACE. IV TO RIGHT HAND IS PATENT WTIHOUT REDNESS AT INSERTION SITE. BREAKFAAST SERVED IN ROOM. DENIES NEEDS.
[2018-10-25 08:45] VITALS: BP 119/79
--- NOTE | 2018-10-25 09:11 | NUR ---
REQUESTED AND GIVNE 10 MG OXY PO FOR C/O LEFT KNEE PAIN LEVEL 9. WILL MONITOR.
--- NOTE | 2018-10-25 09:30 | NUR ---
AMBULATED IN HALLWAY WITH PT USING RW. UP IN CHAIR AT BEDSIDE. DENIES NEEDS.
[2018-10-25 14:41] VITALS: BP 96/60
--- NOTE | 2018-10-25 15:27 | MORECARE ---
CASE MANAGEMENT DISCHARGE SUMMARY PATIENT: SALVADOR EVANS UNIT: [id number] ADM DATE: 10/23/18 AGE: 43 : 71 SEX: F ROOM/BED: D.2211 AUTHOR: TOM SALMON PHYSICIAN: REFERRING PHYSICIAN: MERYL PEREZ DO DATE OF SERVICE: 10/25/18 Discharge Plan Patient Name: SALVADOR EVANS Facility: [facility]:[place] : 1975 Planned Disposition: Home or Self Care Anticipated Discharge Date: Discharge Date: Expected LOS: Initial Reviewer: [email or web address] Initial Review Date: 10/23/2018 Generated: 10/25/18 4:27 pm Comments DCP- Discharge Planning Updated by [email or web address]: Selam Dumont on 10/25/18 2:[address] Patient Name: SALVADOR EVANS Admission Status: Elective Accout number: [id number] Admission Date: 10-23-2018 : 1975 Admission Diagnosis: Attending: MERYL PEREZ Current LOS: 2 Anticipated DC Date: Planned Disposition: Home or Self Care Primary Insurance: MEDICAID [place] Discharge Planning Comments: CM met with patient to complete initial dc planning assessment. CM educated patient on the CM role and verbal consent given by patient to complete assessment. Patient lives at home with her boyfriend where she is independent with her care. At discharge patient plans to return home and feels this is a safe discharge. Her boyfriend will be the one to drive her home. CM discussed availability of home health, rehab services, and medical equipment. Patient would like to do her PT at [facility] as an outpatient. I will set her first appointment up. Patient would like to have a BSC. She has a walker and crutches at home. CM will continue to follow and will assist as needed with dc plans/needs. Piano Professor: Selam Dumont DCPIA - Discharge Planning Initial Assessment Updated by [email or web address]: Selam Dumont on 10/25/18 3:24 pm * Is the patient Alert and Oriented? Yes * How many steps to enter\exit or inside your home? 17 * PCP [facility] * Pharmacy [facility] * Preadmission Environment Home with Family * ADLs Independent * Equipment Crutch Rolling Walker * List name and contact numbers for known caregivers / representatives who currently or will assist patient after discharge: Epifanio Lorenzo (boyfriend) [phone] * Verbal permission to speak to the caregivers and representatives has been obtained from the patient. N/A * Community resources currently utilized None * Additional services required to return to the preadmission environment? Yes * Can the patient safely return to the preadmission environment? Yes * Has this patient been hospitalized within the prior 30 days at any hospital? No Patient Name: SALVADOR EVANS Page [id number] at 1527 All edits/amendments must be made on the electronic document DICTATION DATE: 10/25/181526 STORAGE ENGINEER: SUNDAR 10/25/181526 RPT#: [id number] DC DATE: STATUS: ADM IN [facility] [address] [place] [address] END OF REPORT
--- NOTE | 2018-10-25 17:20 | NUR ---
REQUESTED AND GIVNE 10MG OXY PO FOR C/O LEFT KNEE PAIN LEVEL 9. WILL MONITOR.
[2018-10-25 18:28] VITALS: BP 104/71
--- NOTE | 2018-10-25 18:34 | NUR ---
ATE ABOUT HALF OF SUPPER. CPM IN PLACE TO LEFT KNEE. NO CHANGES NOTED. DENIES NEEDED.
[2018-10-25 21:00] VITALS: BP 133/89
[2018-10-26 01:06] VITALS: BP 154/80
[2018-10-26 04:36] VITALS: BP 124/82
[2018-10-26 06:18] LABS: BASOPHILS 0 % (0-2); EOSINOPHILS 0 % (0-7); HEMATOCRIT 29.4 % (36.0-48.0); HEMOGLOBIN 9.8 g/dL (12-16); IMMATURE GRANULOCYTES 0.2 % (0-5); MCH 31.2 pg (26.0-34.0); MCHC 33.3 g/dL (31.0-37.0); MCV 93.6 fL (80.0-100.0); MONOCYTES 8.6 % (2-11); NEUTROPHILS 56.2 % (40-80); PLATELET COUNT 160 10x3/uL (130-400); RBC 3.14 10x6/uL (4.00-5.40); RDW 13.2 % (11.5-14.5); WBC 4.9 10x3/uL (4.8-10.8)
[2018-10-26 06:47] LABS: ALBUMIN 2.9 g/dL (3.4-5.0); ANION GAP 10.5 mmol/L (8-16); BILIRUBIN - TOTAL 0.62 mg/dL (0.2-1.3); CARBON DIOXIDE 28.2 mmol/L (21.0-32.0); CREATININE - SERUM 1.3 mg/dL (0.6-1.3); POTASSIUM - SERUM 3.7 mmol/L (3.5-5.1); PROTEIN - SERUM 5.8 g/dL (6.4-8.2)
[2018-10-26] MEDS ORDERED: VISTARIL50 MG PO (07:39)
[2018-10-26] MEDS ORDERED: VIBRAMYCIN 100100 MG PO (07:40)
[2018-10-26] MEDS ORDERED: OXYCODONE HCL10 MG PO (07:40)
[2018-10-26] MEDS ORDERED: ELIQUIS2.5 MG PO (07:41)
[2018-10-26 09:15] VITALS: BP 107/73
--- NOTE | 2018-10-26 09:58 | NUR ---
ALERT AND ORIENTED WITH OXUCONTIN GIVEN FOR LT. KNEE PAIN AND TOLERATED WELL. PEDAL PULSES NOTED WITH LIMITED ROM WITH DRESSING INTACT. UP AD TRACEY TO BR WITH WLAKER FOR ASSIST. IVF INFUSING PER MD ORDER. ENCOURAGED TO USE CALL LIGHT FOR ASSIST.
--- NOTE | 2018-10-26 12:05 | MORECARE ---
CASE MANAGEMENT DISCHARGE SUMMARY PATIENT: SALVADOR EVANS UNIT: [id number] ADM DATE: 10/23/18 AGE: 43 : 71 SEX: F ROOM/BED: D.2211 AUTHOR: TOM SALMON PHYSICIAN: REFERRING PHYSICIAN: MERYL PEREZ DO DATE OF SERVICE: 10/26/18 Discharge Plan Patient Name: SALVADOR EVANS Facility: [facility]:[place] : 1975 Planned Disposition: Home or Self Care Anticipated Discharge Date: Discharge Date: Expected LOS: Initial Reviewer: [email or web address] Initial Review Date: 10/23/2018 Generated: 10/26/18 1:05 pm Comments DCP- Discharge Planning Updated by [email or web address]: Selam Dumont on 10/25/18 2:[address] Patient Name: SALVADOR EVANS Admission Status: Elective Accout number: [id number] Admission Date: 10-23-2018 : 1975 Admission Diagnosis: Attending: MERYL PEREZ Current LOS: 2 Anticipated DC Date: Planned Disposition: Home or Self Care Primary Insurance: MEDICAID [place] Discharge Planning Comments: CM met with patient to complete initial dc planning assessment. CM educated patient on the CM role and verbal consent given by patient to complete assessment. Patient lives at home with her boyfriend where she is independent with her care. At discharge patient plans to return home and feels this is a safe discharge. Her boyfriend will be the one to drive her home. CM discussed availability of home health, rehab services, and medical equipment. Patient would like to do her PT at [facility] as an outpatient. I will set her first appointment up. Patient would like to have a BSC. She has a walker and crutches at home. CM will continue to follow and will assist as needed with dc plans/needs. Service Rig Operator: Selam Dumont DCPIA - Discharge Planning Initial Assessment Updated by [email or web address]: Selam Dumont on 10/25/18 3:24 pm * Is the patient Alert and Oriented? Yes * How many steps to enter\exit or inside your home? 17 * [facility] * Pharmacy [facility] * Preadmission Environment Home with Family * ADLs Independent * Equipment Crutch Rolling Walker * List name and contact numbers for known caregivers / representatives who currently or will assist patient after discharge: Epifanio Lorenzo (boyfriend) [phone] * Verbal permission to speak to the caregivers and representatives has been obtained from the patient. N/A * Community resources currently utilized None * Additional services required to return to the preadmission environment? Yes * Can the patient safely return to the preadmission environment? Yes * Has this patient been hospitalized within the prior 30 days at any hospital? No External Providers External Provider: [facility] Next Contact Date: Service Request Date: Service Type: Resolution: Reviewer: Comments: Last DP export: 10/25/18 2:27 pm Patient Name: SALVADOR EVANS Page [phone] at 1205 All edits/amendments must be made on the electronic document DICTATION DATE: 10/26/181203 GLOBAL PROJECT MANAGER: SUNDAR 10/26/18 1204 RPT#: [id number] DC DATE: STATUS: ADM IN [facility] [address] [place] [address] END OF REPORT
--- NOTE | 2018-10-26 12:14 | MORECARE ---
CASE MANAGEMENT DISCHARGE SUMMARY PATIENT: SALVADOR EVANS UNIT: [id number] ADM DATE: 10/23/18 AGE: 43 : 71 SEX: F ROOM/BED: D.2211 AUTHOR: TOM SALMON PHYSICIAN: REFERRING PHYSICIAN: MERYL PEREZ DO DATE OF SERVICE: 10/26/18 Discharge Plan Patient Name: SALVADOR EVANS Facility: [facility]:[place] : 1975 Planned Disposition: Home or Self Care Anticipated Discharge Date: Discharge Date: Expected LOS: Initial Reviewer: [email or web address] Initial Review Date: 10/23/2018 Generated: 10/26/18 1:14 pm Comments DCP- Discharge Planning Updated by [email or web address]: Selam Dumont on 10/26/18 11:[address] PATIENT BEING DISCHARGED TODAY, OUTPATIENT PT AT [facility] HAS BEEN SET UP FOR MondayOctober AT 10:45 I SPOKE WITH FABIAN. I SPOKE WITH MERYL AT [facility] AND HE STATED THAT THE CPM HAS BEEN DELIVERED TO HER HOME. HE ALSO STATED THAT SHE SHOULD HAVE GOTTEN A BEDSIDE COMMODE LAST YEAR WHEN SHE HAD HER REPLACEMENT. I CALLED [facility] TO SEE IF SHE WOULD QUALIFY FOR ONE THEY WILL CALL ME BACK AND LET ME KNOW. CM WILL CONTINUE TO FOLLOW AND ASSIST WITH DC PLANNING NEEDED DCP- Discharge Planning Updated by [email or web address]: Selam Dumont on 10/25/18 2:[address] Patient Name: SALVADOR EVANS Admission Status: Elective Accout number: [id number] Admission Date: 10-23-2018 : 1975 Admission Diagnosis: Attending: MERYL PEREZ Current LOS: 2 Anticipated DC Date: Planned Disposition: Home or Self Care Primary Insurance: MEDICAID [place] Discharge Planning Comments: CM met with patient to complete initial dc planning assessment. CM educated patient on the CM role and verbal consent given by patient to complete assessment. Patient lives at home with her boyfriend where she is independent with her care. At discharge patient plans to return home and feels this is a safe discharge. Her boyfriend will be the one to drive her home. CM discussed availability of home health, rehab services, and medical equipment. Patient would like to do her PT at [facility] as an outpatient. I will set her first appointment up. Patient would like to have a BSC. She has a walker and crutches at home. CM will continue to follow and will assist as needed with dc plans/needs. Magazine Filler: Selam Dumont DCPIA - Discharge Planning Initial Assessment Updated by [email or web address]: Selam Dumont on 10/25/18 3:24 pm * Is the patient Alert and Oriented? Yes * How many steps to enter\exit or inside your home? 17 * [facility] * Pharmacy [facility] * Preadmission Environment Home with Family * ADLs Independent * Equipment Crutch Rolling Walker * List name and contact numbers for known caregivers / representatives who currently or will assist patient after discharge: Epifanio Lorenzo (boyfriend) [phone] * Verbal permission to speak to the caregivers and representatives has been obtained from the patient. N/A * Community resources currently utilized None * Additional services required to return to the preadmission environment? Yes * Can the patient safely return to the preadmission environment? Yes * Has this patient been hospitalized within the prior 30 days at any hospital? No Last DP export: 10/26/18 11:05 am Patient Name: SALVADOR EVANS Page [phone] at 1214 All edits/amendments must be made on the electronic document DICTATION DATE: 10/26/18 1214 PLANT PROTECTION GUARD: SUNDAR 10/26/18 1214 RPT#: [id number] DC DATE: STATUS: ADM IN [facility] [address] [place] [address] END OF REPORT
--- NOTE | 2018-10-26 18:13 | NUR ---
PT. DISCHARGED UNDER THE CARE OF FAMILY AND STABLE AT TIME OF DISCHARGE. IV DISCONTINUED AND VERBALIZED UNDERSTANDING OF DISCHARGE INSTRUCTIONS.
--- NOTE | 2018-10-29 13:48 | MORECARE ---
CASE MANAGEMENT DISCHARGE SUMMARY PATIENT: SALVADOR EVANS UNIT: [id number] ADM DATE: 10/23/18 AGE: 43 : 71 SEX: F ROOM/BED: D.2211 AUTHOR: TOM SALMON PHYSICIAN: REFERRING PHYSICIAN: MERYL PEREZ DO DATE OF SERVICE: 10/29/18 Discharge Plan Patient Name: SALVADOR EVANS Facility: [facility]:[place] : 1975 Planned Disposition: Home or Self Care Anticipated Discharge Date: Discharge Date: 10/26/2018 Expected LOS: 0 Initial Reviewer: [email or web address] Initial Review Date: 10/23/2018 Generated: 10/29/18 2:48 pm Comments DCP- Discharge Planning Updated by [email or web address]: Selam Dumont on 10/26/18 11:[address] PATIENT BEING DISCHARGED TODAY, OUTPATIENT PT AT [facility] HAS BEEN SET UP FOR MondayOctober AT 10:45 I SPOKE WITH FABIAN. I SPOKE WITH MERYL AT [facility] AND HE STATED THAT THE CPM HAS BEEN DELIVERED TO HER HOME. HE ALSO STATED THAT SHE SHOULD HAVE GOTTEN A BEDSIDE COMMODE LAST YEAR WHEN SHE HAD HER REPLACEMENT. I CALLED [facility] TO SEE IF SHE WOULD QUALIFY FOR ONE THEY WILL CALL ME BACK AND LET ME KNOW. CM WILL CONTINUE TO FOLLOW AND ASSIST WITH DC PLANNING NEEDED DCP- Discharge Planning Updated by [id number]: Selam Dumont on 10/25/18 2:[address] Patient Name: SALVADOR EVANS Admission Status: Elective Accout number: [id number] Admission Date: 10-23-2018 : 1975 Admission Diagnosis: Attending: MERYL PEREZ Current LOS: 2 Anticipated DC Date: Planned Disposition: Home or Self Care Primary Insurance: MEDICAID [place] Discharge Planning Comments: CM met with patient to complete initial dc planning assessment. CM educated patient on the CM role and verbal consent given by patient to complete assessment. Patient lives at home with her boyfriend where she is independent with her care. At discharge patient plans to return home and feels this is a safe discharge. Her boyfriend will be the one to drive her home. CM discussed availability of home health, rehab services, and medical equipment. Patient would like to do her PT at [facility] as an outpatient. I will set her first appointment up. Patient would like to have a BSC. She has a walker and crutches at home. CM will continue to follow and will assist as needed with dc plans/needs. Nickel Plater: Selam Dumont DCPIA - Discharge Planning Initial Assessment Updated by [email or web address]: Selam Dumont on 10/25/18 3:24 pm * Is the patient Alert and Oriented? Yes * How many steps to enter\exit or inside your home? 17 * [facility] * Pharmacy [facility] * Preadmission Environment Home with Family * ADLs Independent * Equipment Crutch Rolling Walker * List name and contact numbers for known caregivers / representatives who currently or will assist patient after discharge: Epifanio Lorenzo (boyfriend) [phone] * Verbal permission to speak to the caregivers and representatives has been obtained from the patient. N/A * Community resources currently utilized None * Additional services required to return to the preadmission environment? Yes * Can the patient safely return to the preadmission environment? Yes * Has this patient been hospitalized within the prior 30 days at any hospital? No Last DP export: 10/26/18 11:14 am Patient Name: SALVADOR EVANS Page [phone] at 1348 All edits/amendments must be made on the electronic document DICTATION DATE: 10/29/18 1347 LIVESTOCK RANCH HAND: SUNDAR 10/29/18 1347 RPT#: [id number] DC DATE:10/26/18 STATUS: DIS IN [facility] [address] [place] [address] END OF REPORT
== END 2018-10-26 18:14 | disposition home or self-care (01) | DRG 468 ==
LOC: D.MS 10-23 10:15 → D.SDCHOLD 10-23 10:15 → D.MS 10-23 17:26
PROVIDERS: Family Medicine; ADMIT Orthopaedic Surgery; ATTEND Orthopaedic Surgery
PROC: 0SRD0JZ Replacement of Left Knee Joint with Synthetic Substitute, Open Approach (ICD-10-PCS; 2018-10-23)
PROC: 0SPD0JZ Removal of Synthetic Substitute from Left Knee Joint, Open Approach (ICD-10-PCS; principal; 2018-10-23 13:30)
DX: T84.89XA Other specified complication of internal orthopedic prosthetic devices, implants and grafts, initial encounter (principal); I10 Essential (primary) hypertension; K21.9 Gastro-esophageal reflux disease without esophagitis; F41.8 Other specified anxiety disorders

== ENCOUNTER 2018-11-24 09:39 | Emergency (ER) | payer MEDICAID ==
[~2018-11-24] VITALS: Ht 167.6 cm; Wt 68.2 kg
[~2018-11-24 09:39] MED LIST changes: +BUSPAR10 MG PO; +LAMICTAL100 MG PO; +LISINOPRIL10 MG PO; +LYRICA75 MG PO; +OXYCODONE HCL10 MG PO; +PRAVACHOL20 MG PO; +VIBRAMYCIN 100100 MG PO; +VISTARIL50 MG PO
[2018-11-24 09:45] VITALS: Ht 167.6 cm; Wt 68.2 kg
[2018-11-24 10:10] LABS: BASOPHILS 0 % (0-2); EOSINOPHILS 0 % (0-7); HEMATOCRIT 33.1 % (36.0-48.0); HEMOGLOBIN 11.4 g/dL (12-16); IMMATURE GRANULOCYTES 0.2 % (0-5); LYMPHOCYTES 42.9 % (15-50); MCH 30.5 pg (26.0-34.0); MCHC 34.4 g/dL (31.0-37.0); MCV 88.5 fL (80.0-100.0); MEAN PLATELET VOLUME 9.7 fL (7.4-10.4); NEUTROPHILS 49.9 % (40-80); PLATELET COUNT 178 10x3/uL (130-400); RBC 3.74 10x6/uL (4.00-5.40); RDW 12.5 % (11.5-14.5); WBC 5.6 10x3/uL (4.8-10.8)
[2018-11-24 10:22] LABS: APTT 28.8 SECONDS (22.8-39.4); INR 1.03 (0.85-1.17)
[2018-11-24 10:29] LABS: ALKALINE PHOSPHATASE 121 U/L (46-116); ALT (SGPT) 16 U/L (10-68); BILIRUBIN - TOTAL 0.28 mg/dL (0.2-1.3); CALC OSMOLALITY 275 mosm/kg (275-300); CALCIUM 8.6 mg/dL (8.5-10.1); CARBON DIOXIDE 22.3 mmol/L (21.0-32.0); CHLORIDE - SERUM 106 mmol/L (98-107); CREATININE - SERUM 0.9 mg/dL (0.6-1.3); GLUCOSE 103 mg/dL (74-106); POTASSIUM - SERUM 4.1 mmol/L (3.5-5.1); PROTEIN - SERUM 6.9 g/dL (6.4-8.2); SODIUM 139 mmol/L (136-145); UREA NITROGEN 8 mg/dL (7-18); eGFR NON AFRICAN AMERICAN 72 mL/min (90-120)
[2018-11-24 10:40] LABS: CKMB 0.6 U/L (0.0-3.6); CREATINE KINASE 48 UL (21-215); TROPONIN-I < 0.017 ng/mL (0.000-0.060)
[2018-11-24 11:31] LABS: APPEARANCE CLEAR (CLEAR); BILIRUBIN NEGATIVE (NEGATIVE); COLOR YELLOW (YELLOW); GLUCOSE NEGATIVE (NEGATIVE); KETONE NEGATIVE (NEGATIVE); NITRITE NEGATIVE (NEGATIVE); PROTEIN NEGATIVE (NEGATIVE); UROBILINOGEN NORMAL (NORMAL)
[2018-11-24 12:39] VITALS: BP 122/70
== END 2018-11-24 12:39 | disposition home or self-care (01) ==
LOC: D.ER 09:39
PROVIDERS: Family Medicine
DX: G89.18 Other acute postprocedural pain (principal)

== ENCOUNTER 2019-02-20 05:00 | Day surgery (SDC) | payer MEDICAID ==
[2019-02-19 14:23] LABS: HEMATOCRIT 35.3 % (36.0-48.0); HEMOGLOBIN 12.2 g/dL (12-16); MCHC 34.6 g/dL (31.0-37.0); MCV 89.8 fL (80.0-100.0); MEAN PLATELET VOLUME 9.8 fL (7.4-10.4); RBC 3.93 10x6/uL (4.00-5.40); WBC 7.3 10x3/uL (4.8-10.8)
[~2019-02-20] VITALS: Ht 167.6 cm; Wt 70.3 kg
[~2019-02-20 05:00] MED LIST changes: -LAMICTAL100 MG PO; +LAMICTAL200 M1 PO; +LEVOTHYROXINE125 MCG PO; -LEVOTHYROXINE200 MCG PO; +ZOLOFT100 MG; -ZOLOFT100 MG PO
[2019-02-20 05:38] VITALS: BP 106/70; Ht 167.6 cm; Wt 70.3 kg
--- NOTE | 2019-02-27 09:13 | OP ---
PATIENT NAME: SALVADOR EVANS MEDICAL RECORD: [id number] :[birth year] LOCATION:D.OPS ADMISSION DATE: SURGEON: KEITH RENEE DPM DATE OF OPERATION: 02/20/2019 PREOPERATIVE DIAGNOSES: 1. HAV, left foot. 2. Instability, left first met cuneiform joint. POSTOPERATIVE DIAGNOSES: 1. HAV, left foot. 2. Instability, left first met cuneiform joint. PROCEDURES: 1. Beck bunionectomy, left foot. 2. First met cuneiform joint fusion, left foot. ANESTHESIA: Preoperative popliteal block per the anesthesia department as well as intraoperative general anesthesia. HEMOSTASIS: Left thigh tourniquet at 350 mmHg. PREOPERATIVE DETAILS: The patient was taken to the OR, placed on the operating table in a supine position. This was followed by induction of general anesthesia, the left extremity was then prepped and draped in usual aseptic technique followed by exsanguination and inflation of tourniquet. A 15 blade was used to create an incision from the dorsal aspect of the medial cuneiform distally to the base of the proximal phalanx of the hallux. The incision was deepened down through subcutaneous tissue to the first MPJ where an inverted L capsulotomy was performed and the medial capsular flap was reflected and the head of the first metatarsal was delivered. A sagittal saw was used to resect the medial eminence. Attention was then directed to the first interspace where a lateral release was performed. PROCEDURE #2: First met cuneiform joint fusion, left foot. The incision as described above was deepened down to the first met cuneiform joint. The joint was delivered. A sagittal saw was used to resect the joint. Temporary fixation was placed and a 5-hole plate with one screw crossing the fusion site was placed with excellent rigid internal fixation as well as alignment. Alignment was verified with the C-arm. Wound was flushed. The periosteum as well as the joint capsule of the first MPJ was then repaired with 2-0 Vicryl followed by reapproximation of the subcutaneous tissue with 4-0 Rapide. The skin was then closed with 4-0 Rapide in a subcuticular technique followed by Dermabond. Adaptic, 4 x 4 and Conform were used to dress the wound followed by application of modified Serrano compression dressing. Tourniquet was deflated. POSTOPERATIVE DETAILS: The patient tolerated the procedure well and left the OR with vital signs stable and vascular status at preoperative levels. The patient was transported to recovery per anesthesia in stable condition. TRANSINT:[id number] Voice Confirmation ID: [id number] DOCUMENT ID: [id number] OPERATIVE REPORT [id number] SALVADOR EVANS MCKAY DPM at 0913 CC: [id number] DICTATION DATE: 02/20/19 08 LOGISTIC MANAGER: 02/20/[address] [facility] 02/20/19 [facility] [address] [place] [address]
== END 2019-02-20 10:15 | disposition home or self-care (01) ==
LOC: D.OPS 05:00 → D.PAN 07:00 → D.OPS 10:15
PROVIDERS: Anesthesiology; ATTEND Podiatrist
DX: M20.12 Hallux valgus (acquired), left foot (principal); M25.375 Other instability, left foot; Z01.812 Encounter for preprocedural laboratory examination

== ENCOUNTER 2019-06-30 10:35 | Emergency (ER) | payer MEDICAID ==
[~2019-06-30] VITALS: Ht 167.6 cm; Wt 75.0 kg
[2019-06-30 10:43] VITALS: Ht 167.6 cm; Wt 75.0 kg
[2019-06-30 11:08] LABS: COLOR STRAW (YELLOW)
[2019-06-30 11:09] LABS: APPEARANCE CLEAR (CLEAR); BILIRUBIN NEGATIVE (NEGATIVE); GLUCOSE NEGATIVE (NEGATIVE); KETONE NEGATIVE (NEGATIVE); NITRITE NEGATIVE (NEGATIVE); PROTEIN NEGATIVE (NEGATIVE); SPECIFIC GRAVITY 1.015 (1.005-1.020); UROBILINOGEN NORMAL (NORMAL)
[2019-06-30 11:17] LABS: UDS - AMPHET NEGATIVE QUAL (NEGATIVE); UDS - BARB NEGATIVE QUAL (NEGATIVE); UDS - BENZO NEGATIVE QUAL (NEGATIVE); UDS - COCAINE NEGATIVE QUAL (NEGATIVE); UDS - OPIATE NEGATIVE QUAL (NEGATIVE); UDS - PCP NEGATIVE QUAL (NEGATIVE); UDS - THC POSITIVE QUAL (NEGATIVE)
[2019-06-30] MEDS ORDERED: CYCLOBENZAPRINE5 MG PO (12:00)
[2019-06-30] MEDS ORDERED: DICLOFENAC SODI50 MG PO (12:01)
[2019-06-30 12:10] VITALS: BP 118/68
[2019-07-02] MEDS ORDERED: LITHIUM CARBON300 MG PO (08:19)
[2019-07-02] MEDS ORDERED: IMIPRAMINE10 MG PO (08:20)
== END 2019-06-30 12:11 | disposition home or self-care (01) ==
LOC: D.ER 10:35
PROVIDERS: Emergency Medicine
DX: M25.551 Pain in right hip (principal); E03.9 Hypothyroidism, unspecified; I10 Essential (primary) hypertension

== ENCOUNTER 2019-07-03 06:40 | Day surgery (SDC) | payer MEDICAID ==
[2019-07-02 09:02] LABS: BASOPHILS 0 % (0-2); EOSINOPHILS 0 % (0-7); IMMATURE GRANULOCYTES 0.4 % (0-5); LYMPHOCYTES 30.1 % (15-50); MCH 31.4 pg (26.0-34.0); MCHC 32.4 g/dL (31.0-37.0); MCV 96.9 fL (80.0-100.0); MEAN PLATELET VOLUME 9.3 fL (7.4-10.4); MONOCYTES 6.4 % (2-11); NEUTROPHILS 63.1 % (40-80); PLATELET COUNT 181 10x3/uL (130-400); RBC 3.82 10x6/uL (4.00-5.40); RDW 13.1 % (11.5-14.5)
[2019-07-02 10:04] LABS: ERYTHROCYTE SEDIMENTATION RATE 4 mm/hr (0-20)
[~2019-07-03] VITALS: Ht 167.6 cm; Wt 74.8 kg
--- NOTE | ~2019-07-03 | OP ---
PATIENT NAME: SALVADOR EVANS MEDICAL RECORD: [id number] :71 LOCATION:D.OPS ADMISSION DATE: SURGEON: KEITH RENEE DPM DATE OF OPERATION: 07/03/2019 PREOPERATIVE DIAGNOSES: 1. HAV, right foot. 2. Instability, right first metatarsal-cuneiform joint. POSTOPERATIVE DIAGNOSES: 1. HAV, right foot. 2. Instability, right first metatarsal-cuneiform joint. PROCEDURES: 1. Right Beck bunionectomy. 2. Right first metatarsal-cuneiform joint fusion. ANESTHESIA: Preoperative popliteal block per the anesthesia department as well as intraoperative general anesthesia. HEMOSTASIS: Right thigh tourniquet at 350 mmHg. PREOPERATIVE DETAILS: The patient was taken to the OR and placed on the operating table in a supine position followed by induction of general anesthesia. The right extremity was then prepped and draped in the usual aseptic technique followed by exsanguination and inflation of tourniquet. PROCEDURE: Beck bunionectomy, right foot: A 15 blade was used to create an incision from the dorsal aspect of the medial cuneiform distally to the base of the proximal phalanx of the hallux. The incision was deepened down through subcutaneous tissue to the first MPJ and inverted L capsulotomy was performed. The medial capsular flap was reflected and the head of the first metatarsal was delivered. A sagittal saw was used to resect the medial eminence. Attention was then directed to the first interspace where a lateral release was performed. Right first metatarsal-cuneiform joint fusion: Utilizing the skin incision as described above, the dissection was carried down through the periosteum to the first metatarsal-cuneiform joint. A sagittal saw was used to resect the joint. Temporary fixation was placed and a 5-hole plate with 1 screw through the plate crossing the fusion site was placed under excellent rigid internal fixation. Excellent alignment was noted of the first ray as well as excellent internal fixation rigidity was noted. The wound was flushed. The first MPJ was then repaired with 2-0 Vicryl. The periosteum and deep tissue reapproximated with 2-0 Vicryl. The subcutaneous tissue was then reapproximated with 4-0 Rapide and the skin was closed with 4-0 Rapide in a subcuticular technique followed by Dermabond. Adaptic, 4 x 4, and conform were applied followed by application of modified Serrano compression dressing. The tourniquet was deflated. POSTOPERATIVE DETAILS: The patient tolerated the procedure well and left the OR with vital signs stable and vascular status at preoperative levels. The patient was transported to recovery per anesthesia in stable condition. TRANSINT:[id number] Voice Confirmation ID: [id number] DOCUMENT ID: [id number] OPERATIVE REPORT [id number] SALVADOR EVANS MCKAY DPM CC: [id number] DICTATION DATE: 07/03/19 114 FLOW MATCH SOFA CUTTER: 07/03/191958 [facility] [place] 07/03/19 [facility] [address] [place] [address]
[~2019-07-03 06:40] MED LIST changes: +CYCLOBENZAPRINE5 MG PO; +DICLOFENAC SODI50 MG PO; +IMIPRAMINE10 MG PO; +LITHIUM CARBON300 MG PO
[2019-07-03 07:08] VITALS: BP 123/78; Ht 167.6 cm; Wt 74.8 kg
== END 2019-07-03 13:40 | disposition home or self-care (01) ==
LOC: D.OPS 06:40 → D.PAN 09:00 → D.OPS 09:25
PROVIDERS: ATTEND Podiatrist
DX: M20.11 Hallux valgus (acquired), right foot (principal); M25.374 Other instability, right foot

== ENCOUNTER → 2020-02-04 12:15 | Outpatient (CLI) | payer MEDICAID ==
[2019-07-03 07:08] VITALS: BMI 26.7
== END | disposition home or self-care (01) ==
LOC: D.CT 12:15
PROVIDERS: ATTEND Orthopaedic Surgery
DX: S42.251A Displaced fracture of greater tuberosity of right humerus, initial encounter for closed fracture (principal)

== ENCOUNTER 2020-02-07 08:05 | Day surgery (SDC) | payer MEDICAID ==
[~2020-02-07] VITALS: Ht 167.6 cm; Wt 93.0 kg
[2020-02-07 09:01] VITALS: BP 117/79; Ht 167.6 cm; Wt 93.0 kg
[2020-02-07] MEDS ORDERED: HYDROCODON-ACE1 EA10 PO (10:30)
--- NOTE | 2020-02-07 11:32 | NUR ---
1120-RECD TO ROOM FROM PACU. ALERT. R SHOULDER/ARM NUMB, IN SLING. ICE TO SHOULDER. DENIES PAIN. 1130-UP TO BATHROOM WITH ASSIST, VOIDS FREELY. 1135-SODA AND PUDDING SERVED, NO NAUSEA.
--- NOTE | 2020-02-07 14:21 | OP ---
PATIENT NAME: SALVADOR EVANS MEDICAL RECORD: [id number] :71 LOCATION:[facility] ADMISSION DATE: SURGEON: ADARSH ANGEL MD DATE OF OPERATION: 02/07/2020 PREOPERATIVE DIAGNOSIS: Greater tuberosity fracture of the right proximal humerus. POSTOPERATIVE DIAGNOSIS: Greater tuberosity fracture of the right proximal humerus. PROCEDURE: Open reduction internal fixation of greater tuberosity fracture of the right humerus. SURGEON: Adarsh Angel MD SENIOR ORACLE ADF DEVELOPER: LEOBARDO Aguilar INTRAOPERATIVE COMPLICATIONS: None. SUMMARY OF PATHOLOGIC FINDINGS: The patient has displaced greater tuberosity fracture, which reduced nicely and was amenable to plate fixation under fluoroscopy. OPERATIVE SUMMARY IN DETAIL: After obtaining the appropriate preoperative orthopedic surgery consent as well as anesthetic consultation, evaluation and clearance, the patient was brought to the operating room and placed on table in supine position. After adequate general laryngeal mask was administered, the patient was placed in the beach chair position. All pressure points were well padded. She was held firmly to the operating table using the vacuum pack suction system. Right upper extremity and shoulder were then prepped and draped in routine sterile fashion. The arm was held in the Trimano arm holding device. At this point, the appropriate timeout was taken and agreed upon by all given the patient's unique identifiers. Deltopectoral incision was taken down to the level of cephalic vein, which was protected throughout the case. Deltoid was gently retracted laterally over the humeral head, exposing the patient's fracture. Conjoined tendon was gently retracted medially. The fracture was reduced to an anatomic position and then the AxSOS 3 plate was placed with a combination of both compression and locking screws all done under fluoroscopy. Once fixation was complete, realtime fluoroscopy evaluation showed no protrusion of heads. Final radiographs AP and lateral views were submitted for radiology review. The wound was copiously irrigated and filled with gram of vancomycin and a gram of tobramycin, closed by LEOBARDO Aguilar with #1 Vicryl, 2-0 Vicryl and skin jada. Sterile dressings were applied. The patient was awakened after a sling had been applied. She was taken to recovery room in stable condition. All final needle and sponge counts were correct. TRANSINT:[id number] Voice Confirmation ID: [id number] DOCUMENT ID: [id number] OPERATIVE REPORT [id number] CATHERINEENBURG,SALVADOR ANGEL MD, ADARSH FULTON at 1421 CC: [id number] DICTATION DATE: 02/07/20 1050 METAL BASE BLOCKER: 02/07/20 1259 [facility] 02/07/20 [facility] [address] [place] [address]
== END 2020-02-07 12:30 | disposition home or self-care (01) ==
LOC: D.OPS 08:05 → D.PAN 12:30 → D.OPS 12:30 → D.PAN 16:45 → D.OPS 17:00 → D.PAN 17:00
PROVIDERS: ATTEND Orthopaedic Surgery
DX: S42.251A Displaced fracture of greater tuberosity of right humerus, initial encounter for closed fracture (principal); X58.XXXA Exposure to other specified factors, initial encounter

== ENCOUNTER → 2020-05-08 09:38 | Outpatient (CLI) | payer MEDICAID ==
[2020-02-07 09:01] VITALS: BMI 33.1
[~2020-05-08 09:38] MED LIST changes: +HYDROCODON-ACE1 EA10 PO
== END | disposition home or self-care (01) ==
LOC: D.CT 09:38
PROVIDERS: ATTEND Clinical Nurse Specialist Family Health
DX: S42.251D Displaced fracture of greater tuberosity of right humerus, subsequent encounter for fracture with routine healing (principal)